=== PATIENT | male | born 1980 | race Caucasian/White ===

== ENCOUNTER 2024-07-13 10:08 | Emergency (ER) | payer SELFPAY ==
[2024-07-13 10:12] VITALS: BP 128/80
--- NOTE | 2024-07-13 10:17 | ED.GENMED ---
ED Provider Triage
<Aislinn Wiley PA-C - Last Filed: 07/13/24 10:27>
-
Patient seen by provider in Triage?: Seen in Triage
44-year-old male with no chronic medical problems presents for right inguinal pain onset last night after 'fooling aruond' with his girlfriend
no known trauma
is not aware of any swelling to scrotum
pain with urination
no hematuria
denies any masses
pain radiates to r medial thigh
no fever
nausea but no vomiting
A medical screening examination has been initiated by a qualified medical provider. Based on the assessment performed at this time, it has been determined that an emergent medical condition may exist and the patient has been informed that further
medical evaluation and possible additional diagnostic testing may be needed.
HPI: This is a medical evaluation conducted in person to initiate diagnostic evaluation and provide initial therapeutics. Please see further documentation by the treating clinician.
GENERAL: Alert , in no apparent distress
LUNGS: No acute respiratory distress
NEUROLOGICAL: Alert and oriented
SKIN: Skin intact. No visible changes.
MUSCULOSKELETAL: Moving extremities normally
gu: normal scrotum inspection
moderate tender R inguinal region, fullness ? hernia
normal penis inspection
normal teticular lie
PSYCH: Normal and appropriate interaction.
will start with labs, urine Ct.
History of Present Illness
<Aislinn Wiley PA-C - Last Filed: 07/13/24 10:27>
General
Chief Complaint: Abdominal Pain
Time Seen by Provider: 07/13/24 10:32
<Festus Pinto MD - Last Filed: 07/13/24 15:19>
General
Source: patient
Exam Limitations: none
Nursing documentation reviewed up to this point in time: agreed with
History of Present Illness
History of Present Illness:
44-year-old male presents to the emergency room for evaluation of right groin pain. Patient reports that symptoms started last night and they have been constant and worsening since then. He reports that he was having sex with his girlfriend and
when he stood up he noticed he was having right testicular pain. He says that initially pain was relatively mild but since then it has been progressively worse. He has not noticed any significant swelling. Pain is located in the right testicle
and radiates up the right pelvic region. Worse when he stands, no clear relieving factors noted. He denies any associated dysuria, hematuria, penile discharge. He denies any fever or chills. He denies any abdominal pain. No nausea or vomiting.
No flank pain. Denies similar symptoms in the past.
Review of Systems
<Festus Pinto MD - Last Filed: 07/13/24 15:19>
Review of Systems
All Other Systems: ROS reviewed and negative except as documented in HPI and ROS
Constitutional: Denies fever or chills
Respiratory: Denies trouble breathing
Cardiac: Denies chest pain
ABD/GI: Denies abdominal pain, nausea or vomiting
: Reports other (Groin/scrotal pain); Denies dysuria, frequency, flank pain or discharge
Neurological: Denies dizzy or headache
Phy Exam
<Festus Pinto MD - Last Filed: 07/13/24 15:19>
Physical Exam
Physical Exam:
General: Awake, alert, oriented x3; no acute distress
Head: Normocephalic, atraumatic
Eyes: Conjunctiva normal, sclera anicteric
Throat: Airway intact, handling secretions
Neck: Trachea midline, supple without meningismus
Lungs: Clear to auscultation bilaterally, no wheezing, rales, rhonchi
Heart: Regular rate and rhythm, no murmurs, gallops, or rubs
Abd: Soft, non distended, mild tenderness in the right pelvic/inguinal region
: Normal circumcised penis, patient has tenderness of the right testicle but normal testicular lie, no scrotal swelling; intact cremasterics reflex; no palpable hernia although he has tenderness along the spermatic cord on the right
Neuro: No gross deficit
Extremities: Warm and well-perfused
Scores
<Festus Pinto MD - Last Filed: 07/13/24 15:19>
Heart Failure Risk
Heart Failure Risk Score: Not Applicable
Heart Score for Chest Pain Patients
STEMI patient?: Not applicable
Withdrawal Assessment of Alcohol
Withdrawal Assessment Completed?: Not applicable
Course
<Aislinn Wiley PA-C - Last Filed: 07/13/24 10:27>
Orders/Labs/Results
Orders:
Orders
07/13/24 10:23
Iohexol [Omnipaque] See Protocol PO NOW STA
07/13/24 10:24
CT Abd/pel W Iv And Oral Contr Urgent
Comment:
Reason For Exam: right groin pain concern for hernia
07/13/24 11:13
Complete Blood Count/With Diff Urgent
Comprehensive Metabolic Panel Urgent
PTT Urgent
Prothrombin Time Urgent
Urinalysis Reflex To Culture Urgent
Date Specimen was Collected: 07/13/24
Time Specimen was Collected: 11:04
Urine Microscopic Reflex Cult Urgent
Urine Culture Urgent
JONATHAN Source: U
Specimen Description:
Date Specimen was Collected: 07/13/24
Time Specimen was Collected: 11:04
07/13/24 11:26
Scrotum US [US Scrotum] Urgent
Comment:
Reason For Exam: right scrotal pain
Abnormal Lab Results
07/13/24
11:13
MPV 10.6 H fL
(7.4-10.4)
Absolute Lymphs (auto) 1.1 L 10^3/uL
(1.2-3.4)
Lymphocytes % 17.6 L %
(20.5-51.1)
Glucose 100 H mg/dl
(70-99)
Leukocyte Esterase Rfl Trace A
(Negative)
Urine Bacteria (Reflex) Moderate A
(Negative)
07/13/24 11:13
07/13/24 11:13
Vital Signs
Initial and Last Documented VS:
Initial Vital Signs
Temp Pulse Resp BP Pulse Ox
37.2 C 80 16 128/80 98
07/13/24 10:12 07/13/24 10:12 07/13/24 10:12 07/13/24 10:12 07/13/24 10:12
Last Documented Vital Signs
Temp Pulse Resp BP Pulse Ox
37.2 C 80 16 128/80 98
07/13/24 10:12 07/13/24 10:12 07/13/24 10:12 07/13/24 10:12 07/13/24 10:12
<Festus Pinto MD - Last Filed: 07/13/24 15:19>
Orders/Labs/Results
Orders:
Orders
07/13/24 10:23
Iohexol [Omnipaque] See Protocol PO NOW STA
07/13/24 10:24
CT Abd/pel W Iv And Oral Contr Urgent
Comment:
Reason For Exam: right groin pain concern for hernia
07/13/24 11:13
Complete Blood Count/With Diff Urgent
Comprehensive Metabolic Panel Urgent
PTT Urgent
Prothrombin Time Urgent
Urinalysis Reflex To Culture Urgent
Date Specimen was Collected: 07/13/24
Time Specimen was Collected: 11:04
Urine Microscopic Reflex Cult Urgent
Urine Culture Urgent
JONATHAN Source: U
Specimen Description:
Date Specimen was Collected: 07/13/24
Time Specimen was Collected: 11:04
07/13/24 11:26
Scrotum US [US Scrotum] Urgent
Comment:
Reason For Exam: right scrotal pain
Abnormal Lab Results
07/13/24
11:13
MPV 10.6 H fL
(7.4-10.4)
Absolute Lymphs (auto) 1.1 L 10^3/uL
(1.2-3.4)
Lymphocytes % 17.6 L %
(20.5-51.1)
Glucose 100 H mg/dl
(70-99)
Leukocyte Esterase Rfl Trace A
(Negative)
Urine Bacteria (Reflex) Moderate A
(Negative)
07/13/24 11:13
07/13/24 11:13
Vital Signs
Initial and Last Documented VS:
Initial Vital Signs
Temp Pulse Resp BP Pulse Ox
37.2 C 80 16 128/80 98
07/13/24 10:12 07/13/24 10:12 07/13/24 10:12 07/13/24 10:12 07/13/24 10:12
Last Documented Vital Signs
Temp Pulse Resp BP Pulse Ox
37.2 C 80 16 128/80 98
07/13/24 10:12 07/13/24 10:12 07/13/24 10:12 07/13/24 10:12 07/13/24 10:12
<Festus Pinto MD - Last Filed: 07/13/24 15:19>
MDM/Problems Addressed
Differential Diagnosis Includes:
Nephrolithiasis, testicular torsion, epididymitis, inguinal hernia, appendicitis, UTI
MDM/Problems Addressed:
44-year-old male presents to the emergency room for evaluation of right groin/scrotal pain�started last night after having sex with his girlfriend. No swelling. Vitals and exam as above. Labs sent off in triage including a CBC and a CMP which
were unremarkable. Urinalysis shows some bacteria but no pyuria. Sent for a stat ultrasound of the scrotum to rule out testicular torsion. If negative plan for CT abdomen pelvis. Offered pain medication, patient declined. Monitor closely
reassess after the above.
Ultrasound shows no evidence of testicular torsion or any other acute pathology. Awaiting results of CT.
CT abdomen and pelvis shows no acute pathology�no hernia, no appendicitis. Clinical reassessment patient still having some soreness of the testicle. Continued pain with good flow on ultrasound go strongly against intermittent torsion. Suspect at
this point acute epididymitis. Will start on antibiotics and plan to discharge, referred to urology. I did speak to the patient in detail about strict return precautions�explained that if his pain is worsening at any point or if he notices any
degree of swelling that he should return immediately to be reassessed in the emergency room. He indicated understanding. All questions answered.
<Festus Pinto MD - Last Filed: 07/13/24 15:19>
*Radiology
Radiology exam reviewed: radiology read reviewed
*Pulse Oximetry
Patient hypoxic: no
*Critical Care Note
Total Time (30-74mins, 75-104mins- exclusive of procedures): Not Applicable
Data Reviewed
Source: patient
ED Attending Note
<Aislinn Wiley PA-C - Last Filed: 07/13/24 10:27>
-
Portions of this chart may have been created with voice recognition software.� Occasional wrong word or��sound alike� substitutions may have occurred due to the inherent limitations of voice recognition software.
Discharge Plan
Departure
Patient Disposition: Home (Routine Discharge)
Date of Disposition: 07/13/24
Time of Disposition: 15:15
Patient with high blood pressure during this ER visit?: No
Discharge Problem:
Right groin pain, Epididymitis
Instructions: Epididymitis and Orchitis
Prescriptions:
New
levofloxacin 500 mg tablet
500 mg PO DAILY Qty: 10 0RF
Referrals:
Mio Giraldo MD [Active] - Call in 1-3 days for appt (Urology)
NONE,* [Family Provider] -
Activity Restrictions/Additional Instructions:
RETURN IMMEDIATELY IF YOUR PAIN IS WORSENING OR IF YOU NOTICE ANY SWELLING, OR IF YOU DEVELOP ANY SYMPTOMS CONCERNING TO YOU.
Thank you for visiting the Emergency Department at [facility].
1. Please schedule a follow up appointment as directed. Call first thing tomorrow morning to make an appointment.
2. If indicated, please take your medications as instructed and indicated on discharge paperwork.
3. If any of your symptoms do not improve, or persist, or become more severe within 6-12 hours, please return to the emergency department for further care.
4. Please return to the emergency department if you develop a headache, neck pain/stiffness, fever greater than 100.4F, chest pain, shortness of breath, persistent nausea, vomiting, slurred speech, difficulty walking, numbness/tingling, weakness,
signs of infection or any other symptoms that are worrisome to you.
Please call [phone] if you have any questions.
Interventions
Interventions:
*Risk Screen - Suicide Last Done: 07/13/24 10:12
*General Assessment Last Done: 07/13/24 10:12
*Neglect/Abuse Screening Last Done: 07/13/24 10:12
*ED COVID-19 Vaccine History Last Done: 07/13/24 12:19
Discharge Date and Time
Print Language: MACEDONIAN
[2024-07-13] MEDS: OMNIPAQUE 50 ML PO (11:01)
[2024-07-13 11:05] VITALS: BMI 20.9
[2024-07-13 11:33] LABS: % Basophils 0.8 % (0-2); % Eosinophils 1.5 % (0-6); % Immature Granulocytes 0.3 % (0-0.5); % Lymphocytes 17.6 % (20.5-51.1); % Neutrophils 71.8 % (42.2-75.2); Absolute Basophils 0.1 10^3/uL (0-0.2); Absolute Eosinophils 0.1 10^3/uL (0-0.7); Absolute Lymphocytes 1.1 10^3/uL (1.2-3.4); Absolute Monocytes 0.5 10^3/uL (0.1-0.6); Absolute Neutrophils 4.7 10^3/uL (1.4-6.5); Hematocrit 42.8 % (39.0-52.0); Hemoglobin 14.6 g/dL (13.0-18.0); Mean Corp Hgb Conc. 34.1 g/dL (33.0-37.0); Mean Corpuscular Hgb 30.1 pg (27.0-31.0); Mean Corpuscular Volume 88.2 fL (80.0-94.0); Mean Platelet Volume 10.6 fL (7.4-10.4); Nucleated Red Blood Cells % 0 % (-); Platelet Count 199 10^3/uL (130-400); Red Blood Cell Count 4.85 10^6/uL (4.70-6.10); Red Cell Dist. Width 12.5 % (11.5-14.5); White Blood Cell Count 6.5 10^3/uL (4.8-10.8)
[2024-07-13 11:34] LABS: Urine Albumin Trace (Neg - Trace); Urine Bilirubin Negative (Negative); Urine Character Very Cloudy (Clear); Urine Color Yellow; Urine Glucose Negative (Negative); Urine Ketone Negative (Negative); Urine Leukocyte Trace (Negative); Urine Nitrite Negative (Negative); Urine Occult Blood Negative (Negative); Urine Specific Gravity 1.015 (<1.030); Urine Urobilinogen Negative (Neg - 1+)
[2024-07-13 11:46] LABS: INR 1.05
[2024-07-13 11:52] LABS: ALT (SGPT) 19 U/L (0-50); AST (SGOT) 26 U/L (17-59); Albumin 4.7 g/dl (3.5-5.0); Alkaline Phosphatase 52 U/L (38-126); Blood Urea Nitrogen 19 mg/dl (9-20); Calcium 9.7 mg/dl (8.4-10.2); Carbon Dioxide 27 mmol/L (22-30); Chloride 104 mmol/L (98-107); Estimated Creatinine Clearance 82 ml/min; Glucose 100 mg/dl (70-99); Sodium 141 mmol/L (135-145); Total Bilirubin 0.6 mg/dl (0.2-1.3); Total Protein 7.3 g/dl (6.3-8.2); eGFR > 60.00
[2024-07-13 11:55] LABS: Urine Amorphous Seen
[2024-07-13 11:56] LABS: Urine Bacteria Moderate (Negative); Urine Red Blood Cell 0-2 /HPF (0-2)
[2024-07-13] MEDS: ROCEPHIN 500 MG IM (15:39)
[2024-07-13 15:48] VITALS: BP 145/90
== END 2024-07-13 15:54 | disposition home or self-care (01) ==
LOC: EMR 10:08
PROVIDERS: Physician Assistant; EMERGENCY PHYSICIAN Emergency Medicine
DX: N45.1 Epididymitis (principal); R10.31 Right lower quadrant pain
CPT/HCPCS: 96372; 99284; 74177; 76870; 80053; 81003; 81015; 85025; 85610; 85730; 87086; 93976; Q9967